=== PATIENT | male | born 1950 | race Caucasian/White ===

== ENCOUNTER 2016-12-25 06:52 | Day surgery (SDC) | payer BC ==
[2016-12-22 18:10] VITALS: BMI 26.9
[2016-12-25 07:59] LABS: INR 1.24 (0.82-1.09); PROTHROMBIN TIME (PATIENT) 13.7 SEC (9.98-11.88)
[2016-12-25 14:32] VITALS: TEMP 98.4
[2016-12-25 15:22] VITALS: BP 146/86; PULSE 86
--- NOTE | 2016-12-27 13:47 | PATH ---
Surgical Pathology Report Patient Name: MALU MACKEY Med. Rec. #: [id number] /Age/Gender: 1950 (Age: 66) / M Account: [id number] Location: RADIOLOGY Taken: 12/25/2016 Received: 12/25/2016 Reported: 12/27/2016 Physicians: Alla Carrion M.D. Specimen(s) Received LIVER BIOPSY Clinical History Pancreatic mass and multiple liver lesions Final Diagnosis LIVER, BIOPSY: MODERATELY DIFFERENTIATED ADENOCARCINOMA WITH NONSPECIFIC IMMUNOPHENOTYPE (CK7+ AND CEA 19.9+), CONSISTENT WITH PANCREATICOBILIARY ORIGIN IN THE PROPER CLINICAL CONTEXT. Comment: Sections reveal liver tissue disrupted by a proliferation of neoplastic glands with variably eosinophilic cytoplasm and areas of mucin reduction. Immunohistochemical stains performed and interpreted at [facility] show the following results: The neoplastic cells are positive for CK7, and negative with CK20 and TTF-1. Immunohistochemical stains performed at [place], [place] ([id number]) and interpreted at [facility] show the following results: The neoplastic cells are positive with CEA 19.9, and negative with Napsin A, PAX-8, and HSA. GRACIA-3 shows focal weak reactivity. This case was initially discussed with Dr. Antony Lowery on December 27, 2016. Electronically Signed Dane Payne M.D. Gross Description Received in formalin labeled "liver tissue," are 4 trevizo, cylindrical portions of soft tissue ranging from 0.3-1.1 cm in length and averaging 0.1 cm in diameter. The specimens are submitted in toto in one cassette. 12/25/201612/25/2016
== END 2016-12-25 14:40 | disposition home or self-care (01) ==
LOC: JRADIR 06:52
PROVIDERS: ATTEND Internal Medicine Gastroenterology
PROC: BF45ZZZ Ultrasonography of Liver (ICD-10-PCS; principal; 2016-12-25)
PROC: 0FB03ZX Excision of Liver, Percutaneous Approach, Diagnostic (ICD-10-PCS; 2016-12-25)
DX: C22.7 Other specified carcinomas of liver (principal)
CPT/HCPCS: 36415; 76942-TC; 85610; 87899; 88305-TC; 88341-TC; 88342-TC